=== PATIENT | female | born 1965 | race Caucasian/White ===

== ENCOUNTER → 2016-08-17 | Day surgery (SDC) | payer BC ==
[~2016-08-17] VITALS: Ht 167.6 cm; Wt 99.8 kg
[~2016-08-17] MED LIST: DAYPRO600 M1 PO; DEPO PROVER150 MG/ML IM; FERROUS SULFAT325 M1 PO; FLEXERIL5 MG PO; FLOVENT 220 M220 MCG INH; MEDROL DOSEPAK4 MG PO; MOTRIN800 MG PO; NAPROSYN500 MG PO; PROAIR HFA0.09 MG/AC INH; ROBAXIN750 MG PO; SINGULAIR10 MG PO; VICODIN 500 MG-1 TAB PO; Vicodin 5/500 505 MG PO
--- NOTE | ~2016-08-17 | PROC NOTE ---
[place], [place] PROCEDURE NOTE NAME: PRANAV HURD UNIT #: [id number] ROOM: DOCTOR: JAYSON GOLDEN MD BIRTHDATE: [birth year] DOS: 08/17/2016 PREOPERATIVE DIAGNOSIS: Back sebaceous cyst. POSTOPERATIVE DIAGNOSIS: Back sebaceous cyst. PROCEDURE: Excision of back sebaceous cyst. SURGEON: Jayson Golden MD E [employer]CE RETAILER: GINO. ANESTHESIA: Local (1% plain lidocaine). INDICATIONS: This is a 51-year-old lady with a history of an infected sebaceous cyst in the back, who is here for the above-mentioned procedure. The procedure and its complications were explained to the patient in detail preoperatively. Complications that were discussed included but were not limited to bleeding, infection, and prolonged pain and recurrence. She agreed to proceed. DESCRIPTION OF PROCEDURE: After identifying the patient, the patient was brought to the operating suite and laid in the right lateral position. After the parts were painted and draped in the usual sterile fashion a timeout procedure was called and an incision was marked in an elliptical fashion. The skin and the subcutaneous tissue were incised after local anesthesia was infiltrated. This cyst and the overlying ellipse of skin were excised in its entirety with the help of electrocautery and sent for histopathological diagnosis. Hemostasis was achieved with the help of electrocautery. Thereafter, saline was used for irrigation and the subcutaneous tissue was then approximated with the help of 3-0 Vicryl in an interrupted fashion and the skin edges were approximated with the help of 3-0 nylon in mattress fashion and dressing was placed. The patient tolerated the procedure well. There were no complications. Dr. Jayson Golden, the attending surgeon, was present throughout the operative case. Jayson Golden MD CM:PROCNOTE:PROCEDURE NOTE [id number] JAYSON GOLDEN MD
[2016-08-17 07:30] VITALS: BP 144/83
[2016-08-17 08:40] VITALS: BP 145/74
[2016-08-17 08:55] VITALS: BP 145/89
[2016-08-17 09:10] VITALS: BP 129/85
== END | disposition home or self-care (01) ==
LOC: SDC 08-13 12:30
DX: L72.0 Epidermal cyst (principal); J45.909 Unspecified asthma, uncomplicated; D64.9 Anemia, unspecified

== ENCOUNTER → 2017-06-11 | Outpatient (CLI) | payer OTHER | END | disposition home or self-care (01) | LOC: RAD 17:33 | DX: J20.9 Acute bronchitis, unspecified (principal) ==

== ENCOUNTER 2017-06-21 10:00 | Emergency (ER) | payer OTHER ==
[~2017-06-21] VITALS: Ht 167.6 cm; Wt 109.3 kg
[2017-06-21 11:55] VITALS: BP 132/78
== END 2017-06-21 10:31 | disposition home or self-care (01) ==
LOC: ED 10:00
DX: M54.6 Pain in thoracic spine (principal); R03.0 Elevated blood-pressure reading, without diagnosis of hypertension; Z88.1 Allergy status to other antibiotic agents; Z88.2 Allergy status to sulfonamides

== ENCOUNTER → 2018-06-17 | Outpatient (CLI) | payer OTHER | END | disposition home or self-care (01) | LOC: ORTHO 02:25 | DX: M17.0 Bilateral primary osteoarthritis of knee (principal) ==

== ENCOUNTER 2019-02-08 10:52 | Emergency (ER) | payer OTHER, BC ==
[~2019-02-08] VITALS: Ht 167.6 cm; Wt 112.5 kg
[2019-02-08 10:54] VITALS: BP 132/88
[2019-02-08] MEDS ORDERED: IBUPROFEN600 MG PO (12:48)
== END 2019-02-08 12:48 | disposition home or self-care (01) ==
LOC: ED 10:52
DX: S33.2XXA Dislocation of sacroiliac and sacrococcygeal joint, initial encounter (principal); Z88.1 Allergy status to other antibiotic agents; Z88.2 Allergy status to sulfonamides; Z79.899 Other long term (current) drug therapy; Z90.49 Acquired absence of other specified parts of digestive tract; W01.198A Fall on same level from slipping, tripping and stumbling with subsequent striking against other object, initial encounter; Y93.89 Activity, other specified; Y92.098 Other place in other non-institutional residence as the place of occurrence of the external cause; Y99.0 Civilian activity done for income or pay

== ENCOUNTER → 2020-02-15 | Outpatient (CLI) | payer BC ==
[~2020-02-15] MED LIST changes: +IBUPROFEN600 MG PO
[2020-02-15 08:49] LABS: MEAN CELL VOLUME 89.4 fl (81.0-99.0); MEAN CORPUSCULAR HGB 29.9 pg (27.0-31.0); MEAN CORPUSCULAR HGB CONC 33.4 g/dl (33.0-37.0); MEAN PLATELET VOLUME 10.2 fl (9.6-12.3); RED BLOOD COUNT 4.25 10*6/uL (4.10-5.10); RED CELL DISTRI WIDTH 11.6 % (0-14.5); WHITE BLOOD COUNT 6.6 10*3/uL (4.8-10.8)
[2020-02-15 09:13] LABS: ALBUMIN 3.6 gm/dl (3.1-4.5); ALKALINE PHOSPHATASE 77 U/L (45-117); BUN 20 mg/dl (7-24); CHLORIDE 108 mmol/L (98-107); CHOLESTEROL 159 mg/dL (<200); CREATININE 0.76 mg/dL (0.55-1.02); HDL CHOLESTEROL 44 mg/dl (40-60); LDL CHOLESTEROL 90 mg/dL (9-159); POTASSIUM 4.2 mmol/L (3.5-5.1); SGOT/AST 16 IU/L (3-35); SGPT/ALT 27 U/L (12-78); SODIUM 141 mmol/L (136-145); TOTAL PROTEIN 7.1 gm/dL (6.4-8.2); TRIGLYCERIDES 123 mg/dl (<150); VLDL CHOLESTEROL 25 mg/dL (6-40)
== END | disposition home or self-care (01) ==
LOC: LAB 07:39
PROVIDERS: ATTEND Physician Assistant
DX: Z12.11 Encounter for screening for malignant neoplasm of colon (principal); J45.20 Mild intermittent asthma, uncomplicated; E66.01 Morbid (severe) obesity due to excess calories; M54.42 Lumbago with sciatica, left side